=== PATIENT | female | born 1970 | race American Indian/Alaskan Native ===

== ENCOUNTER 2018-05-19 14:25 | Emergency (ER) | payer SELFPAY ==
--- NOTE | 2018-05-19 14:44 | Emergency Department Report ---
Chief Complaint: Hyperglycemia Stated Complaint: HIGHBLOOD PRESSURE Time Seen by Provider: 05/19/18 14:38 - HPI History of Present Illness: She states for the last two days she has been just feeling "generally not well" Pt is here for refill of DM and HTN medications pt has not taken medication for 4 months, states supposed to be taking glipizide, metformin, and lisinopril She states she also has left upper paraspinal pain pt states she slipped and fell from a ground level fall onto her left, lateral upper back two days ago she has been using aleve and goody powder with some relief BP is elevated in MSE, will refer to [facility] for further management MSE complete MSE screening note: Focused history and physical exam performed. Due to findings the following was ordered: UA, CBC, BMP ED Disposition for MSE Condition: Stable
[2018-05-19 15:11] LABS: Basophils # (Auto) 0.1 K/mm3 (0.0-0.1); Basophils % (Auto) 0.9 % (0.0-1.8); Eosinophils # (Auto) 0.2 K/mm3 (0.0-0.4); Eosinophils % (Auto) 2.9 % (0.0-4.3); Hematocrit 41.7 % (30.3-42.9); Hemoglobin 14.1 gm/dl (10.1-14.3); Lymphocytes # (Auto) 3.3 K/mm3 (1.2-5.4); Lymphocytes % (Auto) 39.6 % (13.4-35.0); Mean Corpuscular HGB Conc 34 % (30-34); Mean Corpuscular Volume 81 fl (79-97); Monocytes # (Auto) 0.5 K/mm3 (0.0-0.8); Monocytes % (Auto) 5.6 % (0.0-7.3); Platelet Count 274 K/mm3 (140-440); Red Blood Count 5.14 M/mm3 (3.65-5.03); Red Cell Distribution Width 13.6 % (13.2-15.2)
[2018-05-19 15:29] LABS: BUN/Creatinine Ratio 23; Blood Urea Nitrogen 18 mg/dL (7-17); Calcium 9.4 mg/dL (8.4-10.2); Hemolysis Index 15
[2018-05-19] MEDS ORDERED: FLEXERIL PO ONE (16:48)
[2018-05-19] MEDS ORDERED: ZESTRIL PO ONE (16:48)
[2018-05-19] MEDS ORDERED: HumuLIN R SUB-Q ONE (16:48)
--- NOTE | 2018-05-19 16:51 | Emergency Department Report ---
HPI - General Chief Complaint: Hyperglycemia Time Seen by Provider: 05/19/18 14:38 - HPI HPI: 47-year-old -[place] female presents to the emergency department with complaint of elevated blood pressure and blood sugar. She also complains of some left upper back pain, inside of the left shoulder blade. The patient has a history of hypertension and [id number] diabetes but says that she has been out off her medication for the past 4 or 5 months due to insurance issues and not having a primary care physician. The patient works at a [employer] and says that she has to get up at about 3 in the morning and often times she is having to drink a lot of caffeine to try and wake up. On top of this, this left scapular back pain has been getting worse over the past week or so and it caused her to not get much sleep at night. She has tried some ibuprofen and Aleve for her symptoms with only temporary relief. She has had to miss about 4 days of work secondary to the back pain and was sent in to be evaluated by HR. ED Past Medical Hx - Past Medical History Hx Hypertension: Yes Hx Diabetes: Yes - Surgical History Additional Surgical History: - Social History Smoking Status: Never Smoker Substance Use Type: Alcohol - Medications Home Medications: Home Medications Medication Instructions Recorded Confirmed Last Taken Type Cyclobenzaprine HCl [Flexeril 5 MG 5 mg PO QHS PRN #10 tab 05/19/18 Unknown Rx TAB] RX: Lisinopril [Zestril] 10 mg PO QDAY #30 tablet 05/19/18 Unknown Rx RX: glipiZIDE [Glucotrol Xl] 5 mg PO QDAY #30 tab.er.24 05/19/18 Unknown Rx RX: metFORMIN [Glucophage] 500 mg PO BID #60 tablet 05/19/18 Unknown Rx Sub-Q Infusion Pump Accessory 1 each QACHS #1 each 05/19/18 Unknown Rx [Accu-Chek] ED Review of Systems ROS: Stated complaint: HIGHBLOOD PRESSURE Other details as noted in HPI Comment: All other systems reviewed and negative Constitutional: denies: chills, fever Eyes: denies: eye pain, vision change ENT: denies: ear pain, throat pain Respiratory: denies: cough, shortness of breath Cardiovascular: denies: chest pain, palpitations Gastrointestinal: denies: abdominal pain, vomiting Genitourinary: denies: dysuria, discharge Musculoskeletal: back pain. denies: arthralgia Skin: denies: rash, lesions Neurological: denies: headache, weakness Physical Exam - Physical Exam Vital Signs: Vital Signs 05/19/18 14:39 Temperature 98 F Pulse Rate 92 H Respiratory 20 Rate Blood Pressure 179/121 O2 Sat by Pulse 98 Oximetry Physical Exam: GENERAL: The patient is well-developed well-nourished. HEENT: Normocephalic. Atraumatic. Patient has moist mucous membranes. EYES: Extraocular motions are intact. Pupils are equal and reactive to light bilaterally. NECK: Supple. Trachea is midline. CHEST/LUNGS: Clear to auscultation. There is no respiratory distress noted. HEART/CARDIOVASCULAR: Regular. There is no tachycardia. There is no obvious murmur. ABDOMEN: Abdomen is soft, nontender. Patient has normal bowel sounds. There is no abdominal distention. SKIN: Skin is warm and dry. NEURO: The patient is awake, alert, and oriented. The patient is cooperative. The patient has no focal neurologic deficits. The patient has normal speech. MUSCULOSKELETAL: There is no tenderness or deformity. There is no limitation range of motion. There is no evidence of acute injury. BACK: There is no midline thoracic or lumbar tenderness to palpation, step-off or deformity. There is some reproducible left-sided thoracic back pain just inside of the left scapula. ED Course Vital Signs 05/19/18 14:39 Temperature 98 F Pulse Rate 92 H Respiratory 20 Rate Blood Pressure 179/121 O2 Sat by Pulse 98 Oximetry ED Medical Decision Making - Lab Data Result diagrams: 05/19/18 14:52 05/19/18 14:52 - Medical Decision Making This patient presents to the emergency department with complaint of elevated blood pressure, elevated blood sugar, medication noncompliance and some recent upper back pain inside of the shoulder blade. The patient's blood pressure was elevated upon arrival but came down to a normal level without any antihypertensive medication here. Her blood sugar was about 310 but there was no significant elevation in the anion gap and the patient does not appear to be in diabetic ketoacidosis or HHNK. The back pain is reproducible and is just inside of the left scapula. Patient was given a small amount of subcutaneous insulin, a Flexeril for her back. Upon reevaluation the patient is feeling much better. Her blood sugar came down to about 210. The patient appears safe for discharge home at this time. She will have a refill of her glipizide and metformin, lisinopril, and she was given a small amount of Flexeril to use at night to get some sleep with her back pain. She understands it is sedating and she cannot take it at work or if she has any responsibilities or if she is driv ing, and he cannot be mixed with alcohol. She will return to the ER with any worsening of her symptoms or any acute distress. - Differential Diagnosis DKA, HHNK, Muscle Spasm, strain Critical Care Time: No Critical care attestation.: If time is entered above; I have spent that time in minutes in the direct care of this critically ill patient, excluding procedure time. ED Disposition Clinical Impression: Hyperglycemia Hypertension Qualifiers: Hypertension type: essential hypertension Qualified Code(s): I10 - Essential (primary) hypertension Back pain Qualifiers: Back pain location: thoracic back pain Chronicity: acute Back pain laterality: left Qualified Code(s): M54.6 - Pain in thoracic spine Disposition: DC-01 TO HOME OR SELFCARE Is pt being admited?: No Condition: Stable Instructions: Low Sodium Diet (ED), Hypertension (ED), Back Pain (ED), Diabetic Hyperglycemia (ED) Additional Instructions: Please follow up with a primary care physician regarding her elevated blood pressure and for control of your diabetes. Restart your medications. Try and keep a blood pressure and blood sugar log. Try and stay away from foods that are high in salt, sugar, starches, carbohydrates and caffeinated products. Return to the emergency Department with any worsening of your symptoms or any acute distress. Prescriptions: Cyclobenzaprine HCl [Flexeril 5 MG TAB] 5 mg PO QHS PRN #10 tab PRN Reason: Muscle Spasm RX: glipiZIDE [Glucotrol Xl] 5 mg PO QDAY #30 tab.er.24 RX: Lisinopril [Zestril] 10 mg PO QDAY #30 tablet RX: metFORMIN [Glucophage] 500 mg PO BID #60 tablet Sub-Q Infusion Pump Accessory [Accu-Chek] 1 each QACHS #1 each Referrals: [facility] [Outside] - 3-5 Days [facility] [Outside] - 3-5 Days [facility] [Outside] - 3-5 Days [facility] [Outside] - 3-5 Days Forms: Work/School Release Form(ED) Time of Disposition: 18:31
[2018-05-19 17:42] LABS: Bacteria,Urine 1+ /HPF (Negative); Bilirubin,Urine NEG (Negative); Blood,Urine NEG (Negative); Color,Urine Yellow (Yellow); Mucus,Urine FEW /HPF
[2018-05-19 18:57] VITALS: BP 118/77
== END 2018-05-19 18:56 | disposition home or self-care (01) ==
LOC: ED 14:25
DX: E11.65 Type 2 diabetes mellitus with hyperglycemia (principal); I10 Essential (primary) hypertension; M54.6 Pain in thoracic spine
CPT/HCPCS: 36415; 80048; 81001; 82962; 85025; 96372; J1815

== ENCOUNTER 2019-01-16 12:51 | Observation (INO) | payer SELFPAY ==
[2019-01-16] MEDS ORDERED: ASPIRIN 325 MG TAB PO ONE (13:18)
--- NOTE | 2019-01-16 13:21 | Emergency Department Report ---
Chief Complaint: Chest Pain Stated Complaint: CHEST PAIN - HPI History of Present Illness: 48 yo BF states she has CP and elevated BP x 1 day. - Exam Vital Signs: Vital Signs 01/16/19 12:54 Temperature 97.9 F Pulse Rate 99 H Respiratory 18 Rate Blood Pressure 175/100 O2 Sat by Pulse 97 Oximetry MSE screening note: Focused history and physical exam performed. Due to findings the following was ordered: ED Disposition for MSE Condition: Stable
--- NOTE | 2019-01-16 13:58 | Emergency Department Report ---
ED Chest Pain HPI - General Chief Complaint: Chest Pain Stated Complaint: CHEST PAIN Time Seen by Provider: 01/16/19 13:53 Source: patient Mode of arrival: Ambulatory Limitations: No Limitations - History of Present Illness Initial Comments: Patient is a 48-year-old female that presented to [facility] with complaints of left- sided chest pain. Patient states her chest pain started this morning. Patient states her chest pain is worsening. Patient states her blood pressure blood sugars have been high as well. Patient states her chest pain is a 5-6 out of 10. Patient states her chest pain is better with rest and worse with exertion. Patient denies shortness of breath. Patient denies diaphoresis. Patient states she feels like she is going to . Patient states she is compliant with her diabetes and her blood pressure medications. Patient states she was at her chronic pain specialist today and was sent here for evaluation. MD Complaint: chest pain -: Sudden Onset: during rest Pain Location: substernal, left chest Pain Radiation: none Severity: severe Severity scale (0 -10): 5 Quality: heaviness Consistency: constant Improves With: rest Worsens With: exertion re: sense of impending doom. denies: nausea, vomting, diaphoresis, dyspnea Other Symptoms: palpitations. denies: cough, fever, syncope, rash, acid taste in mouth, leg swelling, burping Treatments Prior to Arrival: none Aspirin use within the Past 7 Days: (1) Yes - Related Data On Oral Contraceptives: No Previous Rx's Medication Instructions Recorded Last Taken Type Cyclobenzaprine HCl [Flexeril 5 MG 5 mg PO QHS PRN #10 tab 05/19/18 Unknown Rx TAB] Lisinopril [Zestril] 10 mg PO QDAY #30 tablet 05/19/18 Unknown Rx Sub-Q Infusion Pump Accessory 1 each QACHS #1 each 05/19/18 Unknown Rx [Accu-Chek] glipiZIDE [Glucotrol Xl] 5 mg PO QDAY #30 tab.er.24 05/19/18 Unknown Rx metFORMIN [Glucophage] 500 mg PO BID #60 tablet 05/19/18 Unknown Rx Metoprolol [Lopressor TAB] 25 mg PO DAILY #30 tablet 01/16/19 Unknown Rx Pantoprazole [Protonix] 40 mg PO BID #60 tablet 01/16/19 Unknown Rx Allergies Allergy/AdvReac Type Severity Reaction Status Date / Time No Known Allergies Allergy Verified 05/19/18 14:28 Heart Score - HEART Score History: Moderately suspicious EKG: Normal Age: 45-65 Risk factors: > 3 risk factors or hx of atherosclerotic disease Troponin: < normal limit HEART Score: 4 ED Review of Systems ROS: Stated complaint: CHEST PAIN Other details as noted in HPI Constitutional: denies: chills, fever Eyes: denies: eye pain, eye discharge, vision change ENT: denies: ear pain, throat pain Respiratory: denies: cough, shortness of breath, wheezing Cardiovascular: chest pain, palpitations Endocrine: no symptoms reported Gastrointestinal: denies: abdominal pain, nausea, diarrhea Genitourinary: denies: urgency, dysuria, discharge Musculoskeletal: denies: back pain, joint swelling, arthralgia Skin: denies: rash, lesions Neurological: denies: headache, weakness, paresthesias Psychiatric: denies: anxiety, depression Hematological/Lymphatic: denies: easy bleeding, easy bruising ED Past Medical Hx - Past Medical History Previous Medical History?: Yes Hx Hypertension: Yes Hx Diabetes: Yes - Surgical History Past Surgical History?: Yes Additional Surgical History: - Family History Family history: no significant - Social History Smoking Status: Never Smoker Substance Use Type: None - Medications Home Medications: Home Medications Medication Instructions Recorded Confirmed Last Taken Type Cyclobenzaprine HCl [Flexeril 5 MG 5 mg PO QHS PRN #10 tab 05/19/18 Unknown Rx TAB] Lisinopril [Zestril] 10 mg PO QDAY #30 tablet 05/19/18 Unknown Rx Sub-Q Infusion Pump Accessory 1 each QACHS #1 each 05/19/18 Unknown Rx [Accu-Chek] glipiZIDE [Glucotrol Xl] 5 mg PO QDAY #30 tab.er.24 05/19/18 Unknown Rx metFORMIN [Glucophage] 500 mg PO BID #60 tablet 05/19/18 Unknown Rx Metoprolol [Lopressor TAB] 25 mg PO DAILY #30 tablet 01/16/19 Unknown Rx Pantoprazole [Protonix] 40 mg PO BID #60 tablet 01/16/19 Unknown Rx ED Physical Exam - General Limitations: No Limitations General appearance: alert, in no apparent distress - Head Head exam: Present: atraumatic, normocephalic - Eye Eye exam: Present: normal appearance - ENT ENT exam: Present: mucous membranes moist - Neck Neck exam: Present: normal inspection - Respiratory Respiratory exam: Present: normal lung sounds bilaterally. Absent: respiratory distress, wheezes, rales, chest wall tenderness - Cardiovascular Cardiovascular Exam: Present: regular rate, normal rhythm. Absent: systolic murmur, diastolic murmur, rubs, gallop - GI/Abdominal GI/Abdominal exam: Present: soft, normal bowel sounds. Absent: distended, tenderness, guarding - Extremities Exam Extremities exam: Present: normal inspection - Back Exam Back exam: Present: normal inspection - Neurological Exam Neurological exam: Present: alert, oriented X3 - Psychiatric Psychiatric exam: Present: normal affect, normal mood - Skin Skin exam: Present: warm, dry, intact, normal color. Absent: rash ED Course Vital Signs 01/16/19 01/16/19 01/16/19 12:54 13:55 14:00 Temperature 97.9 F Pulse Rate 99 H 116 H 104 H Respiratory 18 18 17 Rate Blood Pressure 175/100 217/120 O2 Sat by Pulse 97 95 Oximetry 01/16/19 01/16/19 01/16/19 14:15 14:17 14:31 Temperature Pulse Rate 89 100 H Respiratory 19 20 20 Rate Blood Pressure 217/120 162/105 O2 Sat by Pulse 98 99 97 Oximetry 01/16/19 01/16/19 01/16/19 14:45 15:01 15:15 Temperature Pulse Rate 97 H 89 91 H Respiratory 15 11 L 12 Rate Blood Pressure 162/105 162/105 162/105 O2 Sat by Pulse 99 100 99 Oximetry 01/16/19 01/16/19 01/16/19 15:30 15:45 16:00 Temperature Pulse Rate 94 H 95 H 86 Respiratory 16 15 14 Rate Blood Pressure 177/128 177/128 153/88 O2 Sat by Pulse 99 99 97 Oximetry 01/16/19 01/16/19 01/16/19 16:15 16:30 16:32 Temperature Pulse Rate 96 H 92 H 80 Respiratory 14 16 Rate Blood Pressure 153/88 149/82 177/128 O2 Sat by Pulse 96 95 Oximetry 01/16/19 01/16/19 01/16/19 16:45 17:00 17:15 Temperature Pulse Rate 85 80 86 Respiratory 11 L 12 11 L Rate Blood Pressure 149/82 114/96 114/96 O2 Sat by Pulse 99 97 99 Oximetry 01/16/19 01/16/19 01/16/19 17:35 17:45 18:01 Temperature Pulse Rate 81 80 80 Respiratory 18 13 14 Rate Blood Pressure 114/96 114/96 114/96 O2 Sat by Pulse 99 99 98 Oximetry 01/16/19 01/16/19 18:15 18:31 Temperature Pulse Rate 80 90 Respiratory 13 16 Rate Blood Pressure 114/96 114/96 O2 Sat by Pulse 99 99 Oximetry - Reevaluation(s) Reevaluation #1: Patient states her pain is returning. Patient will be given morphine 2 mg. 01/16/19 14:42 Reevaluation #2: Patient's blood pressure still elevated. Patient will be given Lopressor. I discussed all results with patient. I discussed plan of care with patient. Patient was admitted to the hospitalist service. 01/16/19 14:59 - Consultations Consultation #1: Hospitalist consult for admission. Hospitalist to admit patient. 01/16/19 15:00 PONCE score - Ponce Score Age > 65: (0) No Aspirin use within the Past 7 Days: (1) Yes 3 or more CAD Risk Factors: (1) Yes 2 or more Angina events in past 24 hrs: (0) No Known CAD with more than 50% Stenosis: (0) No Elevated Cardiac Markers: (0) No ST Deviation Greater than 0.5mm: (0) No PONCE Score: 2 ED Medical Decision Making - Lab Data Result diagrams: 01/16/19 13:29 01/16/19 13:29 - EKG Data -: EKG Interpreted by [facility] EKG shows normal: sinus rhythm, axis, intervals, QRS complexes, ST-T waves Rate: normal - Radiology Data Radiology results: report reviewed - Medical Decision Making Patient is a 48-year-old female presents ER for chest pain. Patient also found to have elevated blood pressure and blood sugar. Patient labs done. Patient's labs unremarkable except for low bicarbonate elevated sugar. Patient admitted to the hospitalist service for further evaluation treatment and rule out ACS. Patient's chest x-ray negative. Patient's EKG negative. Patient given morphine, aspirin and Lopressor. - Differential Diagnosis cp. acs. uncontrolled bp/dm. Critical Care Time: Yes Critical care time in (mins) excluding proc time.: 35 Critical care attestation.: If time is entered above; I have spent that time in minutes in the direct care of this critically ill patient, excluding procedure time. Critical Care Time: 35 minutes ED Disposition Clinical Impression: Malignant hypertension, Hyperglycemia Chest pain Qualifiers: Chest pain type: unspecified Qualified Code(s): R07.9 - Chest pain, unspecified Disposition: DC-09 OP ADMIT IP TO THIS HOSP Is pt being admited?: Yes Does the pt Need Aspirin: No Condition: Serious Time of Disposition: 14:58
[2019-01-16 14:00] LABS: Basophils # (Auto) 0.1 K/mm3 (0.0-0.1); Basophils % (Auto) 1.8 % (0.0-1.8); Eosinophils # (Auto) 0.2 K/mm3 (0.0-0.4); Eosinophils % (Auto) 3.4 % (0.0-4.3); Hematocrit 38.7 % (30.3-42.9); Hemoglobin 12.8 gm/dl (10.1-14.3); Lymphocytes # (Auto) 2.1 K/mm3 (1.2-5.4); Mean Corpuscular HGB Conc 33 % (30-34); Mean Corpuscular Volume 80 fl (79-97); Monocytes # (Auto) 0.4 K/mm3 (0.0-0.8); Monocytes % (Auto) 6.2 % (0.0-7.3); Platelet Count 275 K/mm3 (140-440); Red Blood Count 4.84 M/mm3 (3.65-5.03); Red Cell Distribution Width 14.1 % (13.2-15.2)
[2019-01-16 14:23] LABS: BUN/Creatinine Ratio 18; Blood Urea Nitrogen 14 mg/dL (7-17); Calcium 9.2 mg/dL (8.4-10.2); Hemolysis Index 34
[2019-01-16] MEDS ORDERED: MORPHINE 2 MG/1 ML INJ IV ONE (14:40)
[2019-01-16] MEDS ORDERED: PANTOPRAZOLE 40 MG TAB PO ONE (14:45)
[2019-01-16] MEDS ORDERED: METOPROLOL TARTRATE 5 MG/5 ML INJ IV ONE (14:57)
[2019-01-16 15:43] LABS: Chol/HDL Ratio 4.5 %
--- NOTE | 2019-01-16 18:24 | Cat Scan Report ---
CT ANGIOGRAPHY OF THE CHEST WITH INTRAVENOUS CONTRAST AND MULTIPLANAR MIP RECONSTRUCTIONS INDICATION / CLINICAL INFORMATION: Chest pain and shortness of breath. TECHNIQUE: Axial CT images were obtained after injection of 100 cc Omnipaque 350 IV contrast using CTA protocol. 3 plane MIP / 3D reconstructions were produced. All CT scans at this location are performed using CT dose reduction for ALARA by means of automated exposure control. COMPARISON: None available. FINDINGS: There is excellent opacification of the pulmonary arterial system bilaterally without intraluminal fi lling defect suggest acute PTE. The thoracic aorta is normal in caliber without dissection. There is mild coronary artery calcification. The tracheobronchial tree is normal. There is mild bibasilar dependent atelectasis. The lungs are oth erwise clear. There is no evidence of adenopathy or effusion. The visualized upper abdomen is normal. There is mild mid to upper thoracic spondylosis. No acute oss eous abnormality is seen. IMPRESSION: 1. No evidence of acute PTE. 2. Mild coronary artery calcification. Signer Name: Flakito Shipley MD Signed: 01/16/2019 6:20 PM Workstation Name: [id number]
[2019-01-16 20:08] VITALS: BP 152/89
--- NOTE | 2019-01-17 11:49 | Event Note ---
48 YO Female with Obesity, HTN,DM presents to ED for evaluation of Chest pain. Pt placed in observation status and admitted to telemetry. Pt treated IAW Chest Pain protocol. Serial cardiac enzymes and EKG were negative for acute ischemia. D dimer was elevated but CTA chest was negative for PE. Pt counseled regarding balanced diet, increased physical activity and dietary behavioral changes. Pt symptoms resolved with PPI therapy. Pt medically optimized and back to usual state of health. Pt discharged home and instructed to F/U PCP 3-5 days, and Cardiology 3-5 days. - General Limitations: No Limitations General appearance: alert, in no apparent distress - Head Head exam: Present: atraumatic, normocephalic - Eye Eye exam: Present: normal appearance - ENT ENT exam: Present: mucous membranes moist - Neck Neck exam: Present: normal inspection - Respiratory Respiratory exam: Present: normal lung sounds bilaterally. Absent: respiratory distress, wheezes, rales, chest wall tenderness - Cardiovascular Cardiovascular Exam: Present: regular rate, normal rhythm. Absent: systolic murmur, diastolic murmur, rubs, gallop - GI/Abdominal GI/Abdominal exam: Present: soft, normal bowel sounds. Absent: distended, tenderness, guarding - Extremities Exam Extremities exam: Present: normal inspection - Back Exam Back exam: Present: normal inspection - Neurological Exam Neurological exam: Present: alert, oriented X3 - Psychiatric Psychiatric exam: Present: normal affect, normal mood - Skin Skin exam: Present: warm, dry, intact, normal color. Absent: rash
--- NOTE | 2019-01-22 10:12 | XRay Report ---
CHEST 1 VIEW INDICATION: Chest Pain. COMPARISON: None FINDINGS: Support devices: None. Heart: Within normal limits. Lungs/Pleura: No acute air space or interstitial disease. Additional findings: None. IMPRESSION: No acute findings. Signer Name: Osvaldo Mccarty Jr, MD Signed: 01/22/2019 10:08 AM Workstation Name: [id number]
== END 2019-01-16 19:10 | disposition home or self-care (01) ==
LOC: ED 12:51 → 4A 15:24
PROVIDERS: ADMIT Internal Medicine; ATTEND Internal Medicine
DX: R07.89 Other chest pain (principal); E66.9 Obesity, unspecified; I10 Essential (primary) hypertension; E11.9 Type 2 diabetes mellitus without complications; Z79.84 Long term (current) use of oral hypoglycemic drugs; Z79.899 Other long term (current) drug therapy
CPT/HCPCS: 36415; 71045; 71275; 80048; 80061; 84484; 85025; 85379; 93005; 93010; 96374; 96375; 99284; G0378; J2270; Q9967